=== PATIENT | male | born 1960 | race Asian ===

== ENCOUNTER 2016-12-20 15:16 | Emergency (ER) | payer OTHER ==
[~2016-12-20 15:16] MED LIST: BENZONATATE200 MG PO; COZAAR100 MG PO; FLUT0.05 NAS; LEVAQUIN500 MG OR; LISI20TA11 PO; MEDROL DOSEPAK4 MG OR; RANI150T78 PO; RENVELA800 MG OR
[2016-12-20 20:00] LABS: POTASSIUM 4.3 mmol/L (3.6-5.2)
[2016-12-20 20:09] VITALS: BP 134/72; TEMP 100.2
[2016-12-20 23:34] LABS: PLATELET COUNT 174 K/uL (142-355)
== END 2016-12-20 20:15 | disposition home or self-care (01) ==
LOC: ED 15:16
PROVIDERS: Family Medicine
DX: R60.9 Edema, unspecified (principal); L03.116 Cellulitis of left lower limb
CPT/HCPCS: 36415; 80053; 83605; 85027; 85610; 85651; 96365; 99284; J1885; J3370

== ENCOUNTER 2020-01-03 13:33 | Outpatient (CLI) | payer OTHER | END 2020-01-03 23:40 | disposition home or self-care (01) | LOC: US 13:33 | DX: N43.2 Other hydrocele (principal); M25.511 Pain in right shoulder ==

== ENCOUNTER 2020-01-08 09:08 | Outpatient (CLI) | payer OTHER | END 2020-01-08 19:28 | disposition home or self-care (01) | LOC: RAD 09:08 | DX: M54.12 Radiculopathy, cervical region (principal); J44.9 Chronic obstructive pulmonary disease, unspecified ==